=== PATIENT | female | born 1985 | race Caucasian/White ===

== ENCOUNTER 2016-12-22 15:01 | Emergency (ER) | payer OTHER ==
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
[2016-12-22] MEDS ORDERED: Silver Sulfadiazine 1%* 20 GM TOPICAL ONE (16:52)
[2016-12-22 16:54] VITALS: BP 116/71
== END 2016-12-22 17:36 | disposition home or self-care (01) ==
LOC: UCCORT 15:01
DX: T24.231A Burn of second degree of right lower leg, initial encounter (principal); T31.0 Burns involving less than 10% of body surface; X19.XXXA Contact with other heat and hot substances, initial encounter; Y93.89 Activity, other specified; Y92.9 Unspecified place or not applicable; J06.9 Acute upper respiratory infection, unspecified
CPT/HCPCS: 99213; A9270-GY; G0463

== ENCOUNTER 2018-08-26 12:03 | Emergency (ER) | payer OTHER ==
[2018-08-26 13:42] LABS: ABS Basophils 0 10^3/ul (0-0.2); ABS Eosinophils 0.1 10^3/ul (0-0.6); ABS Lymphocytes 1.6 10^3/ul (1.0-4.8); ABS Monocytes 0.5 10^3/ul (0-0.8); ABS Neutrophils 5.4 10^3/ul (1.5-7.7); ABS Nucleated RBC 0 10^3/ul; Eosinophil % 1.8 %; Hematocrit 39 % (35-47); Hemoglobin 12.9 g/dl (12.0-16.0); Lymphocyte % 20.5 %; Mean Corpuscular HGB Conc 33 g/dl (31-36); Mean Corpuscular Hemoglobin 27 pg (27-31); Mean Corpuscular Volume 80 fL (80-97); Mean Platelet Volume 7.8 fL (7.4-10.4); Nucleated Red Blood Cells % 0; Platelet Count 258 10^3/ul (150-450); Red Blood Count 4.89 10^6/ul (4.00-5.40); Red Cell Distribution Width 15 % (10.5-15); White Blood Count 7.7 10^3/ul (3.5-10.8)
[2018-08-26] MEDS ORDERED: Phenazopyridine TAB* 100 MG PO ONE (13:46)
--- NOTE | 2018-08-26 13:50 | ED ---
GI/ HPI - HPI Summary HPI Summary: Patient is a 32-year-old female with a recent history of a ureteral stent placement for a 14 mm left ureteral stone. Procedure was done in [facility] on 08/23/18. She states since that time she has been having worsening left flank pain, gross hematuria, suprapubic tenderness and urinary frequency, urgency, burning. She had called her urologist 2 days ago who placed her on Ditropan. She also endorses a new discomfort which began occurring yesterday. She states immediately after emptying her bladder she feels her bladder tightens very quickly. This is likely a side effect of the Ditropan. She denies any fevers, sweats, chills. Patient is currently breast-feeding. She was not sent home on any antibiotics. - History of Current Complaint Chief Complaint: EDUrogenitalProblems Time Seen by Provider: 08/26/18 13:04 Stated Complaint: LEFT FLANK PAIN/HAS SENT IN Hx Obtained From: Patient Hx Last Menstrual Period: 12/04/16 Onset/Duration: Started Days Ago Timing: Constant Severity: Moderate Current Severity: Moderate Pain Intensity: 5 Associated Signs and Symptoms: Positive: Back Pain, Hematuria, Dysuria, Abdominal Pain, UTI Symptoms. Negative: Dizziness, Weakness, Nausea, Vomiting Aggravating Factor(s): Nothing Alleviating Factor(s): Nothing - Allergy/Home Medications Allergies/Adverse Reactions: Allergies Allergy/AdvReac Type Severity Reaction Status Date / Time No Known Allergies Allergy Verified 08/26/18 12:10 Home Medications: Home Medications NK [No Home Medications Reported] 08/26/18 [History Confirmed 08/26/18] PMH/Surg Hx/FS Hx/Imm Hx Previously Healthy: Yes Endocrine/Hematology History: Denies: Hx Diabetes, Hx Thyroid Disease Cardiovascular History: Denies: Hx Hypertension, Hx Pacemaker/ICD Respiratory History: Denies: Hx Asthma, Hx Chronic Obstructive Pulmonary Disease (COPD) GI History: Denies: Hx Ulcer History: Denies: Hx Renal Disease Sensory History: Denies: Hx Hearing Aid Psychiatric History: Denies: Hx Panic Disorder - Surgical History Surgery Procedure, Year, and Place: 3 c-sections - Immunization History Hx Pertussis Vaccination: No Immunizations Up to Date: Yes Infectious Disease History: No Infectious Disease History: Denies: Hx Clostridium Difficile, Hx Hepatitis, Hx Human Immunodeficiency Virus (HIV), Hx of Known/Suspected MRSA, Hx Shingles, Hx Tuberculosis, Hx Known/ Suspected VRE, Hx Known/Suspected VRSA, History Other Infectious Disease, Traveled Outside the [place] in Last 30 Days - Family History Known Family History: Positive: None, Unknown Family History: no known cardio vascular issues in family lineage - Social History Occupation: Employed Full-time Lives: With Family Alcohol Use: None Hx Substance Use: No Substance Use Type: Reports: None Hx Tobacco Use: No Smoking Status (MU): Never Smoked Tobacco Have You Smoked in the Last Year: No Review of Systems Negative: Fever, Chills, Fatigue, Skin Diaphoresis Negative: Epistaxis, Dental Pain Negative: Palpitations, Chest Pain Positive: Other - suprapubic tenderness. Negative: Abdominal Pain, Vomiting, Diarrhea, Nausea Positive: see HPI, burning, dysuria, frequency, flank pain, hematuria, pain, urgency Negative: Arthralgia, Myalgia Negative: Headache, Weakness Psychological: Normal All Other Systems Reviewed And Are Negative: Yes Physical Exam Triage Information Reviewed: Yes Vital Signs On Initial Exam: Initial Vitals Temp Pulse Resp BP Pulse Ox 97.2 F 88 17 148/98 100 08/26/18 12:06 08/26/18 12:06 08/26/18 12:06 08/26/18 12:06 08/26/18 12:06 Vital Signs Reviewed: Yes Appearance: Positive: Well-Appearing, Well-Nourished Skin: Positive: Warm, Skin Color Reflects Adequate Perfusion Head/Face: Positive: Normal Head/Face Inspection Eyes: Positive: EOMI, DEANN, Conjunctiva Clear Neck: Positive: Supple, No Lymphadenopathy Respiratory/Lung Sounds: Positive: Clear to Auscultation, Breath Sounds Present Cardiovascular: Positive: RRR, Pulses are Symmetrical in both Upper and Lower Extremities Abdomen Description: Positive: Nontender, Soft, CVA Tenderness (L) Bowel Sounds: Positive: Present Musculoskeletal: Positive: Normal, Strength/ROM Intact Neurological: Positive: Sensory/Motor Intact, Alert, Oriented to Person Place, Time, Speech Normal Psychiatric: Positive: Normal, Affect/Mood Appropriate Diagnostics - Vital Signs Vital Signs Temp Pulse Resp BP Pulse Ox 08/26/18 12:06 97.2 F 88 17 148/98 100 - Laboratory Lab Results: Lab Results 08/26/18 Range/Units 13:32 WBC 7.7 (3.5-10.8) 10^3/ul RBC 4.89 (4.00-5.40) 10^6/ul Hgb 12.9 (12.0-16.0) g/dl Hct 39 (35-47) % MCV 80 (80-97) fL MCH 27 (27-31) pg MCHC 33 (31-36) g/dl RDW 15 (10.5-15) % Plt Count 258 (150-450) 10^3/ul MPV 7.8 (7.4-10.4) fL Neut % (Auto) 70.2 % Lymph % (Auto) 20.5 % Haakon % (Auto) 7.1 % Eos % (Auto) 1.8 % Baso % (Auto) 0.4 % Absolute Neuts (auto) 5.4 (1.5-7.7) 10^3/ul Absolute Lymphs (auto) 1.6 (1.0-4.8) 10^3/ul Absolute Monos (auto) 0.5 (0-0.8) 10^3/ul Absolute Eos (auto) 0.1 (0-0.6) 10^3/ul Absolute Basos (auto) 0 (0-0.2) 10^3/ul Absolute Nucleated RBC 0 10^3/ul Nucleated RBC % 0 Result Diagrams: 08/26/18 13:32 08/26/18 13:32 Lab Statement: Any lab studies that have been ordered have been reviewed, and results considered in the medical decision making process. GIGU Course/Dx - Course Course Of Treatment: During the course of treatment, the patient's evaluated for left flank pain as well as suprapubic tenderness, urinary frequency, urgency , and "tightness" of the bladder. She was recently placed on ditropan. Pyridium 200 mg by mouth given. This was researched on up-to-date and is safe in breast-feeding.IMPRESSION: There appears to be a 2 cm calcification in the left collecting system with a. mild degree of pelvic caliectasis without rosa hydronephrosis. There are no prior images. of the left kidney for comparison to supplemented today's sonographic findings or comment. on chronicity. She is afebrile and vital signs are stable. This to centimeter calcification is much larger than which was previously identified on CT scan at [facility]. UA shows leukocytes and 2+ WBC's. I am concerned for a worsening condition and infection/pyelonephritis as well as large stone unable to pass by stent. Requesting urology consult. Currently at [facility], we do not have urology nutrition intern. Milagros called who auto-accepts the patient. Dr. Giron will be admitting MD in ED. She is stable at discharge. She is given 1g Rocephin. - Diagnoses Differential Diagnoses - Female: Other - pyelonephritis, UTI, ureterolithiasis Provider Diagnoses: Ureterolithiasis, UTI (urinary tract infection) Discharge - Sign-Out/Discharge Documenting (check all that apply): Patient Departure - Discharge Plan Condition: Fair Disposition: TRANS HIGHER LVL OF CARE FAC Referrals: Vipul Cohen [Primary Care Provider] - - Billing Disposition and Condition Condition: FAIR Disposition: Trans Higher Lvl of Care Fac
[2018-08-26 13:52] LABS: Urine Appearance Cloudy; Urine Bacteria Absent (Absent); Urine Bilirubin Negative (Negative); Urine Blood 3+ (Negative); Urine Color Red; Urine Glucose Negative (Negative); Urine Ketones Negative (Negative); Urine Nitrite Negative (Negative); Urine Protein 2+(100 mg/dL) (Negative); Urine Red Blood Cell 3+(>10/hpf) (Absent); Urine Specific Gravity 1.018 (1.010-1.030); Urine Urobilinogen Negative (Negative); Urine White Blood Cell 2+(11-20/hpf) (Absent)
[2018-08-26 13:59] LABS: Albumin 4.3 g/dL (3.2-5.2); Albumin/Globulin Ratio 1.7 (1-3); BUN/Creatinine Ratio 16.2 (8-20); C Reactive Protein 5.39 mg/L (<8.01); Calcium 9.3 mg/dL (8.6-10.3); EGFR Non-African American 99.6 (>60); Globulin 2.6 g/dL (2-4); Magnesium 1.8 mg/dL (1.9-2.7); Potassium 3.8 mmol/L (3.5-5.0); Total Bilirubin 0.4 mg/dL (0.2-1.0); Total Protein 6.9 g/dL (6.4-8.9)
[2018-08-26] MEDS ORDERED: cefTRIAXone VIAL(*) 1,000 MG VIAL IVPB ONE (15:57)
[2018-08-26] MEDS ORDERED: NS 0.9% 1000 ML* 1,000 ML IV ONE (16:15)
[2018-08-26] MEDS ORDERED: cefTRIAXone(*) 1 GM in NS 0.9% 50 ML* 50 ML IVPB ONE (16:22)
[2018-08-26 16:56] VITALS: BP 145/94
== END 2018-08-26 16:54 | disposition short-term general hospital (02) ==
LOC: ED 12:03
DX: N20.1 Calculus of ureter (principal); N39.0 Urinary tract infection, site not specified; R31.0 Gross hematuria
CPT/HCPCS: 36415; 76775; 80053; 81003; 81015; 82550; 83605; 83690; 83735; 85025; 86140; 87040; 87086; 96374; 99283; A9270-GY; J0696